=== PATIENT | female | born 1990 | race Caucasian/White ===

== ENCOUNTER → 2016-09-11 | Outpatient (CLI) | payer MEDICAID | LOC: RAD 13:03 | PROVIDERS: ATTEND Physician Assistant | DX: N92.6 Irregular menstruation, unspecified (principal); D25.9 Leiomyoma of uterus, unspecified | CPT/HCPCS: 76830; 76856; 93976 ==

== ENCOUNTER 2018-01-04 09:55 | Day surgery (SDC) | payer MEDICAID ==
[~2018-01-04 09:55] MED LIST: KETOROLAC TROMETHAMINE 60 MG/2 ML SDV ONE; LIDOCAINE 1%/EPINEPHRINE INJ 20 ML VIAL ONE; LIDOCAINE 2% INJ-PF (20 MG/ML) 2 ML AMPUL ONE; METOCLOPRAMIDE HCL INJ/PF 10 MG/2 ML SDV ONE; ONDANSETRON HCL INJ/PF 4 MG/2 ML SDV ONE
[2018-01-04] MEDS ORDERED: FENTANYL CITRATE INJ/PF 100 MCG/2 ML AMPUL ONE ×2 (10:57)
[2018-01-04 10:58] LABS: HEMOGLOBIN 13.7 g/dL (12.0-15.5); MEAN CORPUSCULAR HEMOGLOBIN 28.9 pg (27.0-33.4); MEAN CORPUSCULAR HGB CONC 34.3 g/dL (32.0-36.0); MEAN CORPUSCULAR VOLUME 84 fl (80-97); PLATELET COUNT 253 10^3/uL (150-450); RED BLOOD COUNT 4.73 10^6/uL (3.72-5.28); WHITE BLOOD COUNT 5.3 10^3/uL (4.0-10.5)
[2018-01-04] MEDS ORDERED: PROPOFOL INJ 200 MG/20 ML VIAL IV ONE ×2 (10:58→13:00)
[2018-01-04] MEDS ORDERED: MIDAZOLAM 2 MG/2 ML INJ ONE (10:58)
[2018-01-04] MEDS ORDERED: DIPHENHYDRAMINE HCL 50 MG/ML VIAL IV PRN (11:43)
[2018-01-04] MEDS ORDERED: FENTANYL CITRATE INJ/PF 100 MCG/2 ML AMPUL IV PRN ×3 (11:43)
[2018-01-04] MEDS ORDERED: PROMETHAZINE HCL INJ 25 MG/1 ML VIAL IV PRN (11:43)
[2018-01-04] MEDS ORDERED: HYDROMORPHONE HCL INJ/PF 2 MG/ML AMPULE IV PRN (13:08)
[2018-01-04] MEDS ORDERED: OXYCODONE-ACETAMINOPHEN 5-325 MG TABLET PO PRN ×2 (13:09)
[2018-01-04] MEDS ORDERED: IBUPROFEN 800 MG TABLET PO PRN (13:09)
[2018-01-04] MEDS ORDERED: RINGERS SOLUTION,LACTATED 1,000 ML IV PRN (13:09)
[2018-01-04] MEDS ORDERED: ONDANSETRON 4 MG TAB.RAPDIS PO PRN (13:10)
[2018-01-04] MEDS ORDERED: ONDANSETRON HCL INJ/PF 4 MG/2 ML SDV IV PRN (13:10)
[2018-01-04 15:16] VITALS: BP 118/74
--- NOTE | 2018-02-01 18:06 | Operative Report ---
Operative Report DATE OF SURGERY: 01/04/18 PREOPERATIVE DIAGNOSIS: Dysfunctional Uterine bleeding. POSTOPERATIVE DIAGNOSIS: VALENTINO, polyp OPERATION: EUA, Paracervical Block, Hysteroscopy, Dilation and Currettage SURGEON: GABRIELA AGUILA ANESTHESIA: LMAC TISSUE REMOVED OR ALTERED: endometrial currettings COMPLICATIONS: None ESTIMATED BLOOD LOSS: less than 5ml INTRAOPERATIVE FINDINGS: 8wks sized uterus, mobile uterus, normal bilateral adnexa. small less than 1cm posterior uterine polyp, thickened endometrium PROCEDURE: Anesthesia: [Dolores Kirkland MD, Pepper Phipps CRNA] IVF: [500ml] UOP: [200ml] Indications: [27yo with prior BTL but new partner with heavy vaginal bleeding with menses presented for management of dysfunctional uterine bleeding and was previously treated with COCPs. SHe has a known stable small uterine fibroid 2.7x 2.3cm. Recent history of chlamydia which was treate dand BF treated then good (negative) test of cure. Ultrasound in the office with noted thickened uterine lining and possible uterine polyp. She desires surgical management since she has failed outpatient management of dysfunctional uterine bleeding. The risks, benefits, alternatives were reviewed and she desires to proceed with planned procedure for hysteroscopy, D&C, poss Myosure.] Procedure: The patient was taken to the Operating Room where general anesthesia was obtained without difficulty. She was prepped and draped in the normal sterile fashion in the dorsal lithotomy position. Exam under anesthesia was performed and noted above. A speculum was placed in the vagina. The anterior cervix was grasped with a single-tooth tenaculum and the uterus sounded to [8] after paracervical block was performed with 8 mL of 1% lidocaine with epinephrine. The cervix was noted to be closed at the beginning of the procedure. Sequential dilators were then used to dilate the cervix to accommodate the the hysteroscope. The hysteroscope was then gently advanced into the uterine cavity in the usual fashion with visualization of the endometrial polyp as noted above. The endometrial polyp was easily removed with ana luisa stones forceps. The At this time gentle curettage was performed until a gritty texture was noted. The hysteroscope was replaced with no evidence of remaining polyp. All instruments were removed from the patient's cervix and vagina. Silver nitrate was applied to the tenaculum site for hemostasis.At this time there was minimal bleeding noted from the cervix. All instruments were removed from the patient's cervix and vagina. Silver nitrate was applied to the tenaculum site for hemostasis. Sponge lap needle and instrument counts are correct 2. The patient tolerated the procedure well and was taken to the recovery area awake and in stable condition.
== END 2018-01-04 14:30 | disposition home or self-care (01) ==
LOC: OROUT 09:55
PROVIDERS: ATTEND Student in an Organized Health Care Education/Training Program
DX: N93.8 Other specified abnormal uterine and vaginal bleeding (principal); E28.2 Polycystic ovarian syndrome; N84.0 Polyp of corpus uteri; Z79.899 Other long term (current) drug therapy
CPT/HCPCS: 36415; 84703; 85027; 88305 ×2; 58558; J2250; J3490 ×3; J1885; J3010; J2765; J2405; J2704; 952

== ENCOUNTER → 2018-12-30 | Outpatient (CLI) | payer BC | LOC: OD 12:49 | PROVIDERS: ATTEND Nurse Practitioner Acute Care | DX: R19.7 Diarrhea, unspecified (principal) | CPT/HCPCS: 87045; 87177; 87205; 87493; 89055 ==